=== PATIENT | male | born 1995 | race Caucasian/White ===

== ENCOUNTER 2017-12-28 18:50 | Emergency (ER) | payer OTHER ==
[~2017-12-28] VITALS: Ht 170.2 cm; Wt 75.7 kg
[2017-12-28 18:59] VITALS: TEMP 37.1; Ht 170.2 cm; Wt 75.7 kg
[2017-12-28] MEDS ORDERED: LIDOCAINE/EPINEPH/TETRACAINE 1 EA SYR EXT STA (19:11)
[2017-12-28] MEDS ORDERED: CEPHALEXIN MONOHYDRATE 250 MG CAP PO STA (19:14)
[2017-12-28] MEDS ORDERED: CEPHALEXIN 500MG HOME PACK 1 EA BTL PO STA (19:27)
[2017-12-28] MEDS ORDERED: CEPH500C PO (19:27)
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
[2017-12-28] MEDS ORDERED: AMOXICIL/CLAVU 875MG HOME PACK PO STA (19:55)
[2017-12-28] MEDS ORDERED: AMOX875T PO (19:56)
[2017-12-28] MEDS ORDERED: LIDOCAINE/EPINEPHRINE 1% 20 ML VIAL INFIL STA (20:11)
[2017-12-28 21:36] VITALS: BP 143/92; PULSE 90; O2SAT 95
[2017-12-29] MEDS ORDERED: AMOXICIL/CLAVU 875MG HOME PACK PO ONE (18:30)
== END 2017-12-28 21:36 | disposition home or self-care (01) ==
LOC: C.EDB 18:51 → C.EDD 21:36
DX: S01.111A Laceration without foreign body of right eyelid and periocular area, initial encounter (principal); W20.8XXA Other cause of strike by thrown, projected or falling object, initial encounter

== ENCOUNTER 2018-01-03 14:07 | Emergency (ER) | payer OTHER ==
[~2018-01-03] VITALS: Ht 170.2 cm; Wt 76.0 kg
[~2018-01-03 14:07] MED LIST: AMOX875T PO
[2018-01-03 14:16] VITALS: BP 117/80; PULSE 68; TEMP 36.7; O2SAT 96; Ht 170.2 cm; Wt 76.0 kg
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
== END 2018-01-03 14:28 | disposition home or self-care (01) ==
LOC: C.EDB 14:10 → C.EDD 14:28
DX: S01.81XD Laceration without foreign body of other part of head, subsequent encounter (principal); X58.XXXD Exposure to other specified factors, subsequent encounter